=== PATIENT | female | born 1980 ===

== ENCOUNTER 2017-03-12 05:55 | Emergency (ER) | payer BC ==
[2017-03-12 06:03] VITALS: BMI 25.8
[2017-03-12 06:08] VITALS: BP 113/67; PULSE 60; RESP 17; TEMP 98.9; O2SAT 98
--- NOTE | 2017-03-12 06:51 | ED PDOC ---
Arrival/HPI - General Chief Complaint: Lower Extremity Problem/Injury Time Seen by Provider: 03/12/17 06:08 - History of Present Illness Narrative History of Present Illness (Text): 36F c/o pain in her 4th toe on the left foot after she stubbed it on a piece of furniture last night. she has not tried anything for the pain. Past Medical History - Reproductive Menopause: No - Pulmonary Hx Asthma: Yes - Psychiatric Hx Substance Use: No - Surgical History Other/Comment: Umbilical hernia - Anesthesia Hx Anesthesia: No Family/Social History Family/Social History: Other (nc) Smoking Status: Never Smoked Hx Alcohol Use: Yes Frequency of alcohol use: Socially Hx Substance Use: No Allergies/Home Meds Allergies/Adverse Reactions: Allergies No Known Allergies Allergy (Verified 03/12/17 06:11) Home Medications: Home Meds Medication Instructions Recorded Confirmed Albuterol HFA [Ventolin HFA 90 1 puff INH PRN PRN 03/12/17 03/12/17 mcg/actuation (8 g)] Promethazine DM [Phenergan DM 10 ml PO PRN PRN 03/12/17 03/12/17 Syrup] Review of Systems - Review of Systems Constitutional: absent: Fevers Physical Exam Vital Signs Reviewed: Yes Vital Signs Temp Pulse Resp BP Pulse Ox 03/12/17 06:08 98.9 F 60 17 113/67 98 Appearance: Positive for: Well-Appearing, Non-Toxic, Comfortable Pain Distress: None Mental Status: Positive for: Alert and Oriented X 3 - Systems Exam Lower Extremity: Present: Other (ttp of 4th toe of left foot. cap refill <2s. sensation intact. DP pulse 2+. no swelling, no ecchymosis, no laceration, no abrasion, no visible signs of trauma.) Medical Decision Making - RAD Interpretation Radiology Orders: 03/12/17 06:20 FOOT LEFT 4TH DIGIT (TOE) [RAD] Stat Disposition/Present on Arrival - Present on Arrival History of DVT/PE: No History of Uncontrolled Diabetes: No Urinary Catheter: No History of Decub. Ulcer: No History Surgical Site Infection Following: None - Disposition Have Diagnosis and Disposition been Completed?: Yes Diagnosis: Toe contusion Disposition: HOME/ ROUTINE Disposition Time: 06:52 Condition: GOOD
--- NOTE | 2017-03-12 10:44 | RAD ---
PROCEDURE: Left Foot and 4th digit Radiographs. HISTORY: stubbe toe COMPARISON: None. FINDINGS: BONES: Normal. No fracture. JOINTS: Normal. SOFT TISSUES: Normal. OTHER FINDINGS: None. IMPRESSION: Soft tissue swelling 4th digit no evidence of fracture
== END 2017-03-12 07:09 | disposition home or self-care (01) ==
LOC: ED 05:55
DX: S90.122A Contusion of left lesser toe(s) without damage to nail, initial encounter (principal); W22.03XA Walked into furniture, initial encounter; Y92.89 Other specified places as the place of occurrence of the external cause